=== PATIENT | female | born 1980 | race Caucasian/White ===

== ENCOUNTER 2017-12-29 08:39 | Inpatient (IN) | payer OTHER ==
[2017-12-29 09:07] VITALS: BP 133/79; TEMP 98.4; BMI 31.1
[2017-12-29] MEDS ORDERED: Misoprostol 200 MCG TAB ONE ×2 (09:56)
[2017-12-29] MEDS: Lactated Ringer's 1,000 ML IV SCH ×2 (10:04→17:44)
[2017-12-29] MEDS ORDERED: Carboprost 250 MCG/ML AMP IM PRN (10:40)
[2017-12-29] MEDS ORDERED: NS / Oxytocin 40 units/1000ml 1,000 ML IV PRN (10:40)
[2017-12-29] MEDS ORDERED: Promethazine HCl 25 MG/ML VIAL IM PRN (10:40)
[2017-12-29] MEDS ORDERED: Methylergonovine 0.2 MG/ML VIAL IM PRN (10:40)
[2017-12-29] MEDS ORDERED: HYDROcodone/Acetaminophen 5/325 mg Tablet PO PRN ×2 (10:40)
[2017-12-29] MEDS ORDERED: Misoprostol 200 MCG TAB PR PRN (10:40)
[2017-12-29] MEDS ORDERED: Lidocaine 1% (PF) 30 ML VIAL SC PRN (10:40)
[2017-12-29] MEDS ORDERED: Ondansetron HCl/PF 4 MG/2 ML Vial IVP PRN (10:40)
[2017-12-29] MEDS ORDERED: Ibuprofen 800 MG TAB PO PRN ×2 (10:40→22:46)
[2017-12-29] MEDS ORDERED: Diphenoxylate HCl/Atropine Tablet PO PRN ×2 (10:40)
[2017-12-29] MEDS ORDERED: Butorphanol Tartrate 1 MG/ML VIAL SLOW IVP PRN (10:40)
[2017-12-29] MEDS ORDERED: Acetaminophen 500 MG TAB PO PRN ×2 (10:40→11:30)
[2017-12-29] MEDS ORDERED: Butorphanol Tartrate 1 MG/ML VIAL ONE (10:49)
[2017-12-29 11:00] LABS: #Eosinphils 0.2 thou/uL (0.0-0.7); #Lymphocytes 1.2 thou/uL (1.20-3.40); #Monocytes 0.4 thou/uL (0.11-0.59); #Neutrophils 6.4 thou/uL (1.40-6.50); %Basophils 0.5 % (0.0-1.0); %Eosinophils 2.4 % (0.0-10.0); %Lymphocytes 14.8 % (21.0-51.0); %Monocytes 5.1 % (0.0-10.0); %Neutrophils 77.2 % (42.0-75.0); Hemoglobin 13.5 g/dL (12.0-16.0); Mean Corpuscular HGB CONC 33.2 g/dL (32.0-36.0); Mean Corpuscular Hemoglobin 30.3 pg (27.0-31.0); Mean Corpuscular Volume 91.3 fL (78.0-98.0); Mean Platelet Volume 9.5 fL (7.4-10.4); Platelet Count 205 thou/uL (130-400); RBC Distribution Width 12.6 % (11.5-14.5); Red Blood Cell (RBC) Count 4.44 mill/uL (4.20-5.40); White Blood Cell (WBC) Count 8.3 thou/uL (4.8-10.8)
[2017-12-29] MEDS: Zolpidem Tartrate 5 MG TAB PO PRN ×2 (11:10→23:03)
[2017-12-29 11:25] LABS: ALT (SGPT) 14 U/L (8-55); AST (SGOT) 14 U/L (5-34); Albumin 3.8 g/dL (3.5-5.0); Alkaline Phosphatase 46 U/L (40-150); Anion Gap 12 mmol/L (10-20); BUN (Urea Nitrogen) 6 mg/dL (7.0-18.7); Calc. Creatinine Clearance 190 mL/min (70-130); Carbon Dioxide 20 mmol/L (22-29); Chloride 110 mmol/L (98-107); Estimated GFR-MDRD Greater than 90; Globulin 2.7 g/dL (2.4-3.5); Glucose 93 mg/dL (70-105); Potassium 3.9 mmol/L (3.5-5.1); Protein, Total 6.5 g/dL (6.0-8.3); Sodium 138 mmol/L (136-145)
[2017-12-29] MEDS ORDERED: Ondansetron HCl/PF 4 MG/2 ML Vial SLOW IVP PRN (11:29)
[2017-12-29] MEDS ORDERED: Zolpidem Tartrate 5 MG TAB PO SCH (11:30)
[2017-12-29 11:44] LABS: HBSAg Index 0.13 S/CO (0-0.99); HIV (1/2) Antibody/Antigen Non-Reactive (NonReactive); HIV 1/2 INDEX 0.06 S/CO (<1.00); Hep B Surf Ag Non-Reactive S/CO (NonReactive)
[2017-12-29 12:04] LABS: Syphilis Antibody Nonreactive (Nonreactive); Syphilis Antibody Index 0.06 S/CO (<1.00 Non-Reactive)
[2017-12-29 12:08] LABS: Free T4 (Free Thyroxine) 0.98 ng/dL (0.70-1.48)
[2017-12-29 12:48] LABS: DRVVT Confirm 34.7; DRVVT Ratio 1.1 Ratio (1.2 or Less); DRVVT Screen 36.7 SEC (20-50)
[2017-12-29] MEDS: Misoprostol 100 MCG TAB VAG SCH ×2 (14:19→18:21)
--- NOTE | 2017-12-29 14:28 | HP ---
DATE OF ADMISSION: 12/29/2017 HISTORY OF PRESENT ILLNESS: Ms. Deal is a 37-year-old white female, at 17-18 weeks by COLLINS thomas on first trimester ultrasound of 06/03/2018. Patient's history is complicated with advanced mat ernal age and history of prior section, and hypothyroidism. The patient had her first obste trical visit at 10 weeks gestation on 11/06/2017 and had another followup visit at 14 weeks gestation on 12/07/2017. Good heart tones were noted at that visit of 160 and patient had a [id number] testing due to advanced maternal age, showing a normal male fetus. The patient was seen today on 12/28 for her 17-week OB visit and during this visit, noted to be unabl e to find a Doppler heart tones. A transabdominal ultrasound was performed by myself and [employer] which unfortunately confirmed a demise with no cardiac activity visualized. T he biparietal diameter measures between 14-15 weeks and noted of the scalp edema and thickened appear ing placenta. The findings of the demise were given to the patient, now we are proceeding with Cytotec induction of second trimester loss. SOCIAL HISTORY: Negative for smoking or alcohol use. CURRENT MEDICATIONS: Levothyroxine 88 mcg daily and vitamin. OB LABS OF SIGNIFICANCE: Her blood type is A positive, antibody screen was negative. RPR was nonrea ctive, hepatitis B surface antigen was negative. Chlamydia and gonorrhea screens were negative. She was rubella immune. Urine culture screening was negative. Her TSH initially was 3.8. A normal mal e with [id number] screening. PHYSICAL EXAMINATION: VITAL SIGNS: The patient's weight 205 pounds. Her blood pressure was 132/84. HEENT: Within normal limits. CHEST: Clear to auscultation. HEART: Regular rate and rhythm. S1, S2 heart sounds. No murmurs, rubs or gallops. ABDOMEN: Soft, nontender. A well-healed Pfannenstiel incision of the lower abdomen was noted. PELVIC: Vulva and vagina had no lesions. Cervix had no lesions. Uterus was 14-16 week size and non tender. ASSESSMENT: This is a 37-year-old white female , prior with a 17-week demise by BPD measurement 14-15 weeks. PLAN: To admit in a.m. for Cytotec second trimester induction. We will also consider placing . Epidural for pain management. Routine admission labs including a CBC, RPR, hepatitis B surface ant igen. We will also do a screening for CMV and parvovirus screening, we will send fetus and placenta to pathology for further pathologic workup for etiology of current demise. Risk and benefits of the procedure have been discussed and patient is scheduled for a.m.
[2017-12-29] MEDS ORDERED: Fentanyl 100 MCG/2 ML VIAL ONE (17:02)
[2017-12-29] MEDS ORDERED: Fentanyl 100 MCG/2 ML VIAL SLOW IVP SCH (17:15)
[2017-12-29] MEDS: Fentanyl 100 MCG/2 ML VIAL SLOW IVP PRN ×3 (19:18→23:30)
--- NOTE | 2017-12-29 22:51 | PDOC.OPDEL ---
OB Operative/Delivery Note Delivery Dr/Surgeon: Sy Pre-Delivery Diagnosis: other (SAB - induction) Procedure/Post Delivery Dx: spontaneous vaginal delivery Weeks gestation: 15 Anesthesia: none - Findings A Sex: male Weight: 1.411 oz - 1 min: 0 - 5 min: 0 - Additional Findings/Plan Placenta delivered: manual removal (Light instrumentation done with ring forceps to remove small pieces of placenta) Repaired Obstetrical Laceration: none Estimated blood loss: 341 Compilations/Other Findings: Fetus delivered when patient got up to use the restroom. Cord avulsed at time of delivery. Speculum was placed in the vagina and the placenta was noted in the cervical os. It was grasped with ring forceps and gently removed. There appeared to be one codyledon missing which was removed with gentle instrumentation using ring forceps. Bleeding was minimal following removal. Cytotec and methergine were used for hemostasis. Mom doing well. Post delivery plan: routine recovery
[2017-12-29] MEDS ORDERED: Ampicillin/Sulbactam 3 GM in Sodium Chloride 0.9% 100 ML IVPB SCH (23:00)
[2017-12-30] MEDS: Lactated Ringer's 1,000 ML IV SCH (04:41)
[2017-12-30] MEDS: Misoprostol 100 MCG TAB VAG SCH (07:23)
[2018-01-01 16:13] LABS: Parvovirus B19 IgG ABS 6.3 index (0.0-0.8); Parvovirus B19 IgM ABS 0.3 index (0.0-0.8)
== END 2017-12-30 07:59 | disposition home or self-care (01) | DRG 779 ==
LOC: L&D 08:39
PROVIDERS: ADMIT Obstetrics & Gynecology; ATTEND Obstetrics & Gynecology
PROC: 10A07ZX Abortion of Products of Conception, Abortifacient, Via Natural or Artificial Opening (ICD-10-PCS; principal; 2017-12-29)
DX: O03.4 Incomplete spontaneous abortion without complication (principal)
CPT/HCPCS: 36415; 76815; 80053; 81241; 84439; 84443; 85025; 85613; 86644; 86645; 86747; 86780; 86850; 86900; 86901; 87340; 87389; 88300; 88305; J0295; J0595; J2210; J3010; J7050

== ENCOUNTER 2018-09-06 19:57 | Inpatient (IN) | payer OTHER ==
--- NOTE | 2018-09-06 21:39 | HP ---
She is scheduled for admission this evening for intrauterine . HISTORY OF PRESENT ILLNESS: Ms. Deal is a 37-year-old white female G4, P2, A1, who is currently at 16 weeks three days' gestation with EDC 02/18/2019. She has had 2 previous full-term pregnancies with one being delivered via section. She most recently suffered a 16-week intrauterine demise in the fall of 2017. The fetus was a male and it was noted to be somewhat growth restricted. The pathology of the placenta shows some maternal decidual vasculopathy, which is nonspecific. She had an extensive thrombophilia panel workup along with TORCH testing, which was all negative. All TORCH titers were negative for infectious etiology and thrombophilia panel which included lupus anticoagulant, FABY, anticardiolipin antibodies, antiphospholipid antibodies, factor V Leiden, Homero viper venom testing, and antithrombin 3, protein C and S, activities along with factor V Leiden were all normal with no evidence of thrombophilia issues. She was referred after the past loss to Dr. Francisco of Maternal Medicine and along with his review, we felt the recommendation for future was 81 mg daily of aspirin. She has been taking this during this current since the late first trimester. The patient has been followed every 2 weeks with confirmatory heart tones via ultrasound and also Doppler most recently 2 weeks ago. Unfortunately, today the patient was seen for her routine visit and I was unable to auscultate heart tones with a Doppler. Bedside ultrasound was performed transabdominally and no heart activity was noted, and this was confirmed by Dr. Renae Kwan, my colleague. The findings were discussed with the patient again noting the intrauterine . PAST MEDICAL AND SURGICAL HISTORY: Prior section, hypothyroidism. She noted has had a spontaneous vaginal delivery of with her 2 viable full-term pregnancies and then recent Cytotec induction back in December 2017 for IUFD at 15 or 16 weeks. CURRENT MEDICATIONS: 1. Baby aspirin 81 mg daily. 2. Levothyroxine 88 mcg tablet daily. 3. One vitamin daily. ALLERGIES: SHE HAS ALLERGIES TO IODINE. FAMILY HISTORY: Her family history is otherwise noncontributory. OB LABS: On this current are as follows. Her blood type is A positive. Antibody screen negative. Urine culture and sensitivity were negative. Hepatitis B surface antigen negative. HIV negative. GC chlamydia was negative. Rubella is immune. TSH recently was normal with a level of 0.03 and free T4 of 1.28. She also had NIPT testing with [facility] showing this fetus to be a normal female. DATING CRITERIA: Her last menstrual period was 05/14/2018. Initial ultrasound at 8 weeks confirmatory with an EDC of 02/18/2019. Family history is otherwise negative. PHYSICAL EXAMINATION: GENERAL: The patient is a well-developed, well-nourished white female. VITAL SIGNS: Her weight is 196 pounds. Her blood pressure is 136/76. HEENT: Within normal limits. CHEST: Clear to auscultation. HEART: Regular rate and rhythm. S1 and S2 heart sounds. No murmurs, rubs, or gallops. ABDOMEN: Soft, nontender, and nondistended. Uterus approximately 16-week size. No heart tones noted with Doppler and confirmed by transabdominal ultrasound. PELVIC: Deferred at this time. ASSESSMENT: This 37-year-old white female G4, P2, A1 at 16 weeks three days with recurrent intrauterine at 16 weeks. Previous extensive workup has been carried out for recent loss in the fall of 2017. These included negative TORCH titer testing, and negative thrombophilia panel workup, most notably negative anticardiolipin antibodies and antiphospholipid antibodies. The patient has hypothyroidism, but is euthyroid on current treatment. There is no other evidence suggesting an infectious process currently with this . The patient is otherwise well and asymptomatic with no suggestions of fever and recent infections. PLAN: Plan is to admit the patient overnight for Cytotec induction, second trimester loss protocol. I will have the OB hospitalist service, Dr. Anderson perform this as I will be out of town until later this weekend. Job ID: [id number]
[2018-09-06 21:44] VITALS: BMI 29.7
[2018-09-06] MEDS ORDERED: Promethazine HCl 25 MG/ML VIAL IM PRN (22:42)
[2018-09-06] MEDS ORDERED: NS / Oxytocin 40 units/1000ml 1,000 ML IV PRN (22:42)
[2018-09-06] MEDS ORDERED: Ondansetron PF 4 MG/2 ML Vial IVP PRN (22:42)
[2018-09-06] MEDS ORDERED: HYDROcodone/Acetaminophen 5/325 mg Tablet PO PRN ×2 (22:42)
[2018-09-06] MEDS ORDERED: Lidocaine 1% (PF) 30 ML VIAL SC PRN (22:42)
[2018-09-06] MEDS ORDERED: Ibuprofen 800 MG TAB PO PRN (22:42)
--- NOTE | 2018-09-06 22:51 | PDOC.EVN ---
Event Note - Event Note Event Note: ADMISSION H&P Time: 2244 PLEASE NOTE: This patient has a full H&P for this admission discteated by Dr Arora in [facility]. This note is my on-call admit note but full H&P is in [facility] by Dr Arora. Patient arrived earlier while I was with an urgent D&C with Dr Hinojosa CC: DX: 17 week SAB HPI: Patient has a HX of prior 16 week SAB, requiring IOL as well. She has a prior CS HX x 1. Review of Systems: complete ROS completed and negative as per HPI Past Surg: CS x 1 OB HX: one , one CS, one SAB at 16 weeks. Prior workup for the SAB was negative for APA, thrombophilia, TORCH. Etiology of that and this loss is not clear. Meds: She was on low dose ASA this . ALLERGY: Iodine/shellfish Assessment: 17 week, SAB, prior SAB at 16 weeks...CS x1. Plan: Case discussed in detail with Dr arora. I will cover for Dr Arora. Lams and then cytotec planned. I will allow for serna dilation for 4 hours then begin PV cytotec at 400 MCG Q 4 hours. I have reviewed this plan with the patient as well.
[2018-09-06] MEDS: Lactated Ringer's 1,000 ML IV SCH (22:55)
[2018-09-06] MEDS ORDERED: Acetaminophen 500 MG TAB PO PRN (23:04)
[2018-09-06] MEDS: Butorphanol Tartrate 1 MG/ML VIAL SLOW IVP PRN (23:05)
--- NOTE | 2018-09-06 23:21 | PDOC.EVN ---
Event Note - Event Note Event Note: LAMINARIA insert Detilaed information given to the patient and at bedside, with Wai ( RN) in room. Sterile spec used..cx seen..cx visually closed.. Area prepped with sterile soap. Single tooth tenac placed at anterior cervical lip for retraction. 3 lams placed under direct visualization without issue. Wet 4x4 sponge placed in vagina to pack. We will leave in for 4 hours and then start cytotec PV 400mcg q4 Lams in at 2315
[2018-09-06 23:56] LABS: Hemoglobin 12.3 g/dL (12.0-16.0); Mean Corpuscular HGB CONC 33.1 g/dL (32.0-36.0); Mean Corpuscular Hemoglobin 30.4 pg (27.0-31.0); Mean Corpuscular Volume 91.7 fL (78.0-98.0); Mean Platelet Volume 8.5 fL (7.4-10.4); Platelet Count 186 thou/uL (130-400); RBC Distribution Width 12.5 % (11.5-14.5); Red Blood Cell (RBC) Count 4.04 mill/uL (4.20-5.40)
[2018-09-07 00:30] LABS: HIV (1/2) Antibody/Antigen Non-Reactive (NonReactive); HIV 1/2 INDEX 0.08 S/CO (<1.00); Syphilis Antibody Nonreactive (Nonreactive); Syphilis Antibody Index 0.06 S/CO (<1.00 Non-Reactive)
[2018-09-07] MEDS: Butorphanol Tartrate 1 MG/ML VIAL SLOW IVP PRN ×6 (01:10→08:55)
[2018-09-07] MEDS: Misoprostol 100 MCG TAB VAG SCH ×2 (03:00→06:05)
[2018-09-07 03:21] LABS: Hep B Surf Ag NonReactive S/CO (NonReactive)
[2018-09-07] MEDS: Lactated Ringer's 1,000 ML IV SCH ×2 (03:30→06:10)
[2018-09-07] MEDS ORDERED: Misoprostol 200 MCG TAB ONE (09:12)
[2018-09-07 11:41] LABS: PTT 29.4 SEC (22.9-36.1); Prothrombin Time 13.5 SEC (12.0-14.7)
[2018-09-07 13:09] LABS: Factor IX Test 158.7 % ACTIVE (56-149); Factor VIII Test 173.3 % ACTIVE (56-157)
[2018-09-07 13:50] LABS: DRVVT Confirm 33.1; DRVVT Ratio 1.1 Ratio (1.2 or Less); DRVVT Screen 37.1 SEC (20-50); HEX PHOS LA Tube 1 57.5 SEC; HEX PHOS LA Tube 2 52.2 SEC; Hexagonal Phospholipid Neut 5.3 SEC (0-8.0)
--- NOTE | 2018-09-08 12:22 | OP ---
DATE OF PROCEDURE: 09/07/2018 The patient delivered a nonviable approximately 16-week size fetus at 9:05 a.m. followed by placenta 15 to 20 minutes later after a medical induction for intrauterine demise. There is minimal bleeding and no complications. Fetus appeared to be intact and appeared to be about 15 to 16 weeks' gestation. Family have declined any pathologic workup of placenta or the baby and have requested that the baby go to the burial services that the hospital offers. Job ID: [id number]
--- NOTE | 2018-09-08 20:14 | DIS ---
DATE OF ADMISSION: 09/06/2018 DATE OF DISCHARGE: 09/07/2018 ADMITTING DIAGNOSES: Intrauterine demise at 15-16 weeks. DISCHARGE DIAGNOSIS: Intrauterine demise at 15-16 weeks. PROCEDURE: Cytotec induction for a second trimester loss. CONSULTATIONS: None. HOSPITAL COURSE: The patient is a 37-year-old female who presented to Labor and Delivery for induction of labor after having a second trimester loss, intrauterine demise. The patient has had a thorough workup with no identifiable causes at this time. The patient underwent an induction of labor with Cytotec and laminaria. Course was uncomplicated and delivered at 9:05 in the morning of 09/07/2018. 2 hours , the patient was doing well with no bleeding, no complaints, and desire for discharge home. After discussing with the family, the patient has declined any kind of further workup on the fetus or placenta and has accepted the hospital burial services that are available. The patient is discharged to home with instructions to call Dr. Obrien's office to schedule followup visit. Opportunities were available for the patient and family to ask any questions that they may have. Job ID: [id number]
[2018-09-10 13:04] LABS: Cardiolipin IgA Ab 1.4 APL-U/mL (<14 Negative); Cardiolipin IgG Ab Less than 0.5 GPL-U/mL (<10 Negative); Cardiolipin IgM Ab Less than 0.8 MPL-U/mL (<10 Negative); EliA APS New Method **** NEW METHOD ****; beta-2-Glycoprotein I IgA Ab 1.6 U/mL (<7 Negative); beta-2-Glycoprotein I IgG Ab 0.8 U/mL (<7 Negative); beta-2-Glycoprotein I IgM Abs Less than 2.9 U/mL (<7 Negative)
== END 2018-09-07 11:30 | disposition home or self-care (01) | DRG 779 ==
LOC: L&D 19:57
PROVIDERS: ADMIT Obstetrics & Gynecology; ATTEND Obstetrics & Gynecology
PROC: 10A07ZW Abortion of Products of Conception, Laminaria, Via Natural or Artificial Opening (ICD-10-PCS; principal; 2018-09-06)
DX: O02.1 Missed abortion (principal); E03.9 Hypothyroidism, unspecified; Z79.82 Long term (current) use of aspirin; Z91.041 Radiographic dye allergy status
CPT/HCPCS: 36415; 84439; 84443; 85025; 85240; 85250; 85598; 85610; 85613; 85730; 86146; 86147; 86780; 86850; 86900; 86901; 87340; 87389; 88300; J0595

== ENCOUNTER 2019-03-22 14:54 | Outpatient (CLI) | payer OTHER ==
--- NOTE | 2019-03-22 15:38 | MMO ---
Bilateral MAMMO Bilat Diag [facility]. CLINICAL HISTORY: Patient is 38 years old and is seen for diagnostic exam. The patient has no family history of breast cancer. The patient has no personal history of cancer. VIEWS: The views performed were: bilateral craniocaudal with tomosynthesis; bilateral mediolateral oblique with tomosynthesis; and bilateral mediolateral with tomosynthesis. This study has been interpreted with the assistance of computer-aided detection. MAMMOGRAM FINDINGS: The breasts are heterogeneously dense, which could obscure a lesion on mammography. There are no suspicious masses, suspicious calcifications, or new areas of architectural distortion. IMPRESSION: THERE IS NO MAMMOGRAPHIC EVIDENCE OF MALIGNANCY. A ROUTINE FOLLOW-UP MAMMOGRAM AT AGE 40 IS RECOMMENDED. THE RESULTS OF THIS EXAM WERE SENT TO THE PATIENT. ACR BI-RADS Category 1 - Negative MAMMOGRAPHY NOTE: 1. A negative mammogram report should not delay a biopsy if a dominant of clinically suspicious mass is present. 2. Approximately 10% to 15% of breast cancers are not detected by mammography. 3. Adenosis and dense breasts may obscure an underlying neoplasm. Reported by: BRITTANI ROSALES MD Electonically Signed: [id number]
== END 2019-03-22 14:55 | disposition home or self-care (01) ==
LOC: BICMAMMO 14:54
PROVIDERS: ATTEND Obstetrics & Gynecology
DX: N64.4 Mastodynia (principal)
CPT/HCPCS: 77066; G0279